=== PATIENT | male | born 2000 ===

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

== ENCOUNTER 2019-02-08 21:05 | Emergency (ER) | payer OTHER ==
[2019-02-08 21:21] VITALS: BP 136/72
[2019-02-08] MEDS ORDERED: Ondansetron ODT TAB* 4 MG PO ONE ×2 (21:33→22:06)
--- NOTE | 2019-02-08 21:43 | UC ---
General HPI - HPI Summary HPI Summary: 18-year-old male comes in with chief complaint of nausea and abdominal cramping bilateral leg cramping. 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 He reports he hasn't been eating much or drinking much fluids. A few hours ago he started feeling hot and cold chills and nausea. Then he ended up feeling quite nauseous having abdominal cramping and also ended up with bilateral leg cramping on the right worse than the left. He did not throw up he felt like he needed to throw up. He has drank some carbonated water and had a few pieces of candy and he does feel somewhat better now. When he was having abdominal cramping in the leg cramping he was also getting tingling in his bilateral hands and feet and perioral area. He does have a history of anxiety and panic attacks. - History of Current Complaint Chief Complaint: UCGeneralIllness Stated Complaint: TINGLING IN EXTREMETIES, LEG CRAMPING Time Seen by Provider: 02/08/19 21:14 Pain Intensity: 2 - Allergy/Home Medications Allergies/Adverse Reactions: Allergies Allergy/AdvReac Type Severity Reaction Status Date / Time No Known Allergies Allergy Verified 02/08/19 21:22 PMH/Surg Hx/FS Hx/Imm Hx Previously Healthy: Yes Psychological History: Anxiety - Surgical History Surgical History: Yes Surgery Procedure, Year, and Place: right elbow surgery 2013 - Family History Known Family History: Positive: Non-Contributory - Social History Alcohol Use: Occasionally Substance Use Type: None Smoking Status (MU): Light Every Day Tobacco Smoker Review of Systems All Other Systems Reviewed And Are Negative: Yes Constitutional: Positive: Other - SEE HPI Skin: Positive: Negative Eyes: Positive: Negative ENT: Positive: Negative Respiratory: Positive: Negative Cardiovascular: Positive: Negative Gastrointestinal: Positive: Abdominal Pain, Nausea, Other - SEE HPI Genitourinary: Positive: Negative Motor: Positive: Negative Neurovascular: Positive: Negative Musculoskeletal: Positive: Other: - SEE HPI Neurological: Positive: Paresthesia - SEE HPI Psychological: Positive: Other - SEE HPI Is Patient Immunocompromised?: No Physical Exam Triage Information Reviewed: Yes Appearance: Well-Appearing, No Pain Distress, Well-Nourished Vital Signs: Initial Vital Signs Temp 98.2 F 02/08/19 21:15 Pulse 71 02/08/19 21:15 Resp 17 02/08/19 21:15 BP 136/72 02/08/19 21:15 Pulse Ox 98 02/08/19 21:15 Vital Signs Reviewed: Yes Eye Exam: Normal Eyes: Positive: Conjunctiva Clear ENT: Positive: Pharynx normal Neck: Positive: Supple Respiratory: Positive: Lungs clear, Normal breath sounds, No respiratory distress Cardiovascular: Positive: RRR Abdomen Description: Positive: Nontender, Soft Bowel Sounds: Positive: Present Musculoskeletal: Positive: Strength Intact, ROM Intact, Other: - No calf tenderness at this time or swelling. No pain in the calf with passive range of motion of the ankle. Normal sensation. Normal strength throughout. Neurological: Positive: Alert, Muscle Tone Normal Psychological: Positive: Normal Response To Family, Age Appropriate Behavior Skin Exam: Normal Course/Dx - Course Course Of Treatment: Patient improved in clinic. Zofran 4 mg ODT. He is tolerating some fluids. I believe his symptoms are due to probable dehydration and perhaps electrolyte imbalances secondary to not eating well or sleeping well for the last 4 days while taking final exams. Then hyperventilation adding to the symptoms. Patient is going home to [place] with his mother jaylan and we have sent him with 2 doses of Zofran to be used as needed. Problems primary care doctor get reevaluated sooner if worse or any questions or concerns. - Diagnoses Provider Diagnosis: Nausea, Muscle cramping Discharge ED - Sign-Out/Discharge Documenting (check all that apply): Patient Departure All imaging exams completed and their final reports reviewed: No Studies - Discharge Plan Condition: Stable Disposition: HOME Patient Education Materials: Acute Nausea and Vomiting (ED), Leg Cramps (ED) Referrals: [facility] [Outside] Additional Instructions: FOLLOW UP WITH YOUR DOCTOR IF NOT COMPLETELY IMPROVED. GET REEVALUATED SOONER IF NOT IMPROVED OR WORSE OR ANY QUESTIONS OR CONCERNS. - Billing Disposition and Condition Condition: STABLE Disposition: Home
== END 2019-02-08 22:20 | disposition home or self-care (01) ==
LOC: UCEAST 21:05
DX: R11.0 Nausea (principal); R25.2 Cramp and spasm; R10.9 Unspecified abdominal pain; R20.2 Paresthesia of skin; F17.210 Nicotine dependence, cigarettes, uncomplicated
CPT/HCPCS: 99212; A9270-GY; G0463